=== PATIENT | female | born 1955 | race American Indian/Alaskan Native ===

== ENCOUNTER 2020-08-10 12:51 | Outpatient (CLI) | payer BC ==
--- NOTE | 2020-08-10 15:31 | Magnetic Resonance Report ---
Bilateral breast MRI with and without contrast. History: PERSONAL HX OF BREAST CA Procedure: Axial T1 and T2-weighted fat-sat images were obtained precontrast. 15 cc MultiHance was i njected intravenously and serial axial T1-weighted images with fat saturation were obtained postcontr ast. 3-D MIP projections, Kinetic analysis and subtraction imaging was utilized to evaluate. A Smart Mocha 8 channel breast coil was utilized for image acquisition. Comparison: Multiple screening mammograms as recent as 07/13/2020 Findings: Background level of enhancement is mild. No suspicious axillary or clavicular nodes are identified. No abnormal bone marrow signal is seen. No significant chest wall enhancement is noted. Right breast: Surgical scar is again seen in the lateral aspect of the right breast without significa nt enhancement. Posterior medial to this scar in the far posterior central lower right breast at appr oximately 6:00 to 6:30. A 9 mm well-defined reniform enhancing lesion is seen with prominent washout. This lies within 5 mm of the chest wall and is approximately 7.5 cm from the nipple and 3.4 cm from the lateral skin surface. I do not see an obvious mammographic correlate. I believe this is very like ly a lymph node. Left breast: In the upper outer left mid breast, approximately 4.7 cm from the chest wall, a 1.7 cm f rom the lateral skin surface, and 7.5 cm from the nipple, a well-defined rounded nodule is seen with increased signal on T2-weighted imaging. This shows enhancement but kinetics are benign with ascendin g profile. No mammographic correlate is seen. No other lesions are seen in the left breast. Impression: 1. Probable lymph node is seen posterior to the area of scarring in the right breast. Recommend confi rmation with targeted ultrasound. 2. Benign-appearing nodule in the left breast. Targeted ultrasound may be useful to confirm a benign appearance. BIRADS: 0: Incomplete - needs additional imaging evaluation Signer Name: Pantera Hanson MD Signed: 08/10/2020 3:27 PM Workstation Name: [id number]
== END 2020-08-10 12:52 | disposition home or self-care (01) ==
LOC: SPVIMAG 12:51
PROVIDERS: ATTEND Surgery
DX: Z12.31 Encounter for screening mammogram for malignant neoplasm of breast (principal); Z85.3 Personal history of malignant neoplasm of breast
CPT/HCPCS: A9577; C8908; 77049

== ENCOUNTER 2020-08-23 10:49 | Outpatient (CLI) | payer BC ==
--- NOTE | 2020-08-23 13:01 | Ultrasound Report ---
ULTRASOUND BREAST BILATERAL LIMITED, 08/23/2020 CLINICAL INFORMATION / INDICATION: ABNORMAL INCONCLUSIVE FINDINGS ON DIAGNOSTIC IMAGING OF BREASTS. T argeted bilateral breast ultrasound to evaluate MRI findings. TECHNIQUE: Targeted ultrasound evaluation was performed of the area of interest. COMPARISON: Bilateral breast MRI 08/10/20 and bilateral mammography 07/13/20. FINDINGS: RIGHT: No abnormality is seen in the right breast at the site of a probable lymph node seen on breast MRI. LEFT: There is mild to moderate benign-appearing ductal ectasia in the left subareolar region. No son ographic abnormality is seen in the left upper outer quadrant at the site of the benign-appearing nod ule seen on MRI. IMPRESSION: Neither MRI finding is seen on targeted ultrasound. Both abnormalities are probably benig n on MRI and a follow-up bilateral breast MRI in 6-12 months is recommended to document stability. Follow up recommendation: Routine yearly BI-RADS Category 2: Benign. A normal or "negative" report should not preclude biopsy or follow-up of a clinically suspicious find ing. Signer Name: Bennie Garibay MD Signed: 08/23/2020 12:57 PM Workstation Name: [id number]
== END 2020-08-23 10:50 | disposition home or self-care (01) ==
LOC: SPVWC 10:49
PROVIDERS: ATTEND Surgery
DX: R92.8 Other abnormal and inconclusive findings on diagnostic imaging of breast (principal)

== ENCOUNTER 2020-11-07 11:55 | Outpatient (CLI) | payer BC ==
[2020-11-07 12:30] LABS: Basophils % (Auto) 1.2 % (0.0-1.8); Eosinophils # (Auto) 0.1 K/mm3 (0.0-0.4); Eosinophils % (Auto) 1.8 % (0.0-4.3); Hematocrit 39.2 % (30.3-42.9); Hemoglobin 13.2 gm/dl (10.1-14.3); Lymphocytes # (Auto) 1.1 K/mm3 (1.2-5.4); Lymphocytes % (Auto) 40.3 % (13.4-35.0); Mean Corpuscular HGB Conc 34 % (30-34); Mean Corpuscular Volume 92 fl (79-97); Monocytes # (Auto) 0.2 K/mm3 (0.0-0.8); Monocytes % (Auto) 6.7 % (0.0-7.3); Platelet Count 190 K/mm3 (140-440); Red Blood Count 4.25 M/mm3 (3.65-5.03)
[2020-11-07 13:17] LABS: Alanine Aminotransferase 12 units/L (7-56); Albumin 4.5 g/dL (3.9-5); Blood Urea Nitrogen 11 mg/dL (7-17); Calcium 10.5 mg/dL (8.4-10.2); Chol/HDL Ratio 2.28 %; HDL Cholesterol 112 mg/dL (40-59); Hemolysis Index 14; LDL Cholesterol,Direct 152 mg/dL (50-130)
[2020-11-07 13:36] LABS: BUN/Creatinine Ratio 16
== END 2020-11-07 11:56 | disposition home or self-care (01) ==
LOC: LAB 11:55
PROVIDERS: ATTEND Internal Medicine
DX: Z00.00 Encounter for general adult medical examination without abnormal findings (principal); Z13.220 Encounter for screening for lipoid disorders; Z13.29 Encounter for screening for other suspected endocrine disorder; E55.9 Vitamin D deficiency, unspecified
CPT/HCPCS: 36415; 80053; 80061; 82306; 82607; 83036; 84443; 85025

== ENCOUNTER 2021-06-13 13:22 | Outpatient (CLI) | payer BC ==
[2021-06-13 14:07] LABS: Basophils % (Auto) 0.9 % (0.0-1.8); Eosinophils # (Auto) 0.1 K/mm3 (0.0-0.4); Eosinophils % (Auto) 2.5 % (0.0-4.3); Hematocrit 41.4 % (30.3-42.9); Hemoglobin 13.9 gm/dl (10.1-14.3); Lymphocytes # (Auto) 1.5 K/mm3 (1.2-5.4); Lymphocytes % (Auto) 51.7 % (13.4-35.0); Mean Corpuscular HGB Conc 34 % (30-34); Mean Corpuscular Volume 92 fl (79-97); Monocytes # (Auto) 0.2 K/mm3 (0.0-0.8); Monocytes % (Auto) 7.2 % (0.0-7.3); Platelet Count 180 K/mm3 (140-440); Red Blood Count 4.48 M/mm3 (3.65-5.03); Red Cell Distribution Width 14.6 % (13.2-15.2)
[2021-06-13 14:32] LABS: Blood Urea Nitrogen 17 mg/dL (7-17); Calcium 10.9 mg/dL (8.4-10.2); Chol/HDL Ratio 2.37 %; HDL Cholesterol 109 mg/dL (40-59); Hemolysis Index 5; LDL Cholesterol,Direct 155 mg/dL (50-130)
[2021-06-13 14:45] LABS: BUN/Creatinine Ratio 24
== END 2021-06-13 13:23 | disposition home or self-care (01) ==
LOC: LAB 13:22
PROVIDERS: ATTEND Internal Medicine
DX: E78.5 Hyperlipidemia, unspecified (principal); D72.819 Decreased white blood cell count, unspecified
CPT/HCPCS: 36415; 80048; 80061; 82330; 85025

== ENCOUNTER 2021-07-19 10:07 | Outpatient (CLI) | payer BC ==
--- NOTE | 2021-07-19 11:39 | XRay Report ---
RIGHT HIP 2 VIEWS INDICATION: PAIN IN RIGHT HIP. COMPARISON: None. IMPRESSION: No acute osseous or soft tissue abnormality. No significant DJD. Moderate to severe d egenerative changes are noted in the visualized lower lumbar spine mild degenerative changes at the S I joints. There appears to be a partially calcified 4.5 cm uterine fibroid in the midline pelvis. Signer Name: Nicholas Mitchell Jr, MD Signed: 07/19/2021 11:35 AM Workstation Name: [id number]
--- NOTE | 2021-07-19 15:10 | Mammography Report ---
DIGITAL SCREENING MAMMOGRAM WITH CAD, 07/19/2021 CLINICAL INFORMATION / INDICATION: Routine screening mammography. TECHNIQUE: Digital bilateral 2D mammography was obtained in the craniocaudal and mediolateral obliqu e projections. This examination was interpreted with the benefit of Computer-Aided Detection analysis . COMPARISON: 07/01/2019 FINDINGS: Breast Density: There are scattered areas of fibroglandular density. No dominant mass, suspicious calcifications, or architectural distortion in either breast. Postlumpectomy and radiation change, right breast. Left breast biopsy clip. Overall, no change. IMPRESSION: No mammographic evidence of malignancy. Follow up recommendation: Routine yearly BI-RADS Category 2: Benign. A "normal" or negative report should not discourage follow up or biopsy of a clinically significant f inding. A written summary of these findings will be mailed to the patient. The patient will be entered into a mammography reporting system which will generate a reminder letter for the patient's next appointmen t at the appropriate interval. The [employer] recommends yearly mammograms starting at age 40 and continuing as l tracy as a woman is in good health. Breast MRI is recommended for women with an approximate 20-25% or greater lifetime risk of breast cancer, including women with a strong family history of breast or ova constance cancer or who have been treated for Hodgkin's disease. Signer Name: Maricarmen Salazar MD Signed: 07/19/2021 3:05 PM Workstation Name: [id number]
== END 2021-07-19 10:08 | disposition home or self-care (01) ==
LOC: SPVWC 10:07
PROVIDERS: ATTEND Internal Medicine
DX: Z12.31 Encounter for screening mammogram for malignant neoplasm of breast (principal); M25.551 Pain in right hip
CPT/HCPCS: 77067

== ENCOUNTER 2022-04-23 10:30 | Outpatient (CLI) | payer BC ==
[2022-04-23 12:24] LABS: Basophils % (Auto) 1.1 % (0.0-1.8); Eosinophils # (Auto) 0.1 K/mm3 (0.0-0.4); Eosinophils % (Auto) 2.9 % (0.0-4.3); Hematocrit 40.6 % (30.3-42.9); Hemoglobin 13.8 gm/dl (10.1-14.3); Lymphocytes # (Auto) 1.3 K/mm3 (1.2-5.4); Lymphocytes % (Auto) 50.5 % (13.4-35.0); Mean Corpuscular HGB Conc 34 % (30-34); Mean Corpuscular Volume 92 fl (79-97); Monocytes # (Auto) 0.2 K/mm3 (0.0-0.8); Monocytes % (Auto) 8.2 % (0.0-7.3); Platelet Count 185 K/mm3 (140-440); Red Blood Count 4.42 M/mm3 (3.65-5.03); Red Cell Distribution Width 13.3 % (13.2-15.2)
[2022-04-23 12:40] LABS: Alanine Aminotransferase 17 units/L (7-56); Albumin 4.8 g/dL (3.9-5); BUN/Creatinine Ratio 15; Blood Urea Nitrogen 12 mg/dL (7-17); Calcium 10.7 mg/dL (8.4-10.2); Chol/HDL Ratio 2.26 %; HDL Cholesterol 117 mg/dL (40-59); Hemolysis Index 10; LDL Cholesterol,Direct 151 mg/dL (50-130)
== END 2022-04-23 10:31 | disposition home or self-care (01) ==
LOC: LABHHL 10:30
PROVIDERS: ATTEND Internal Medicine
DX: Z00.00 Encounter for general adult medical examination without abnormal findings (principal); E78.5 Hyperlipidemia, unspecified; E55.9 Vitamin D deficiency, unspecified; D72.819 Decreased white blood cell count, unspecified
CPT/HCPCS: 36415; 80053; 80061; 82306; 84443; 85025